=== PATIENT | female | born 1980 | race Two or more races ===

== ENCOUNTER 2019-11-12 14:09 | Outpatient (CLI) | payer OTHER | END 2019-11-12 14:42 | disposition home or self-care (01) | LOC: MAMO-SONO 14:09 | DX: Z12.31 Encounter for screening mammogram for malignant neoplasm of breast (principal); N60.01 Solitary cyst of right breast; N60.02 Solitary cyst of left breast; D25.2 Subserosal leiomyoma of uterus ==

== ENCOUNTER 2019-11-13 08:41 | Outpatient (CLI) | payer OTHER | END 2019-11-13 09:07 | disposition home or self-care (01) | LOC: LAB 08:41 | PROVIDERS: ATTEND Specialist | DX: E03.8 Other specified hypothyroidism (principal); E55.9 Vitamin D deficiency, unspecified; R91.1 Solitary pulmonary nodule; D63.8 Anemia in other chronic diseases classified elsewhere; E78.49 Other hyperlipidemia ==